=== PATIENT | male | born 1935 | race Caucasian/White ===

== ENCOUNTER 2017-01-24 21:19 | Emergency (ER) | payer MEDICARE, OTHER ==
[2017-01-24 21:31] VITALS: BP 162/75
[2017-01-24] MEDS ORDERED: Ondansetron 4 MG/2 ML SDV IVPUSH ONE (23:04)
[2017-01-24] MEDS ORDERED: HYDROmorphone 0.5 MG/0.5 ML Syringe IVPUSH ONE (23:06)
--- NOTE | 2017-01-24 23:11 | EDM.PDOC ---
ED HPI GENERAL MEDICAL PROBLEM - General Chief Complaint: Abdominal Pain Stated Complaint: SHARP PAIN ON LEFT SIDE Time Seen by Provider: 01/24/17 22:09 Source of Information: Reports: Patient, Family (, son), RN Notes Reviewed History Limitations: Reports: No Limitations - History of Present Illness INITIAL COMMENTS - FREE TEXT/NARRATIVE: The patient states he he developed sharp left lower quadrant abdominal pain lasting approximately 30 seconds or so around noon today. He had a second episode, also lasting about 30 seconds, around 14:00. He developed a third episode, associated with some left flank pain, around 16:00, however, this latest episode has been coming and going ever since. The patient has not identified any modifiers. No associated nausea, vomiting, diarrhea, urinary symptoms, or fever. No gross hematuria. No prior similar symptoms. The patient has not tried any home medications or remedies. The patient states that he was started on hydrochlorothiazide this past 12/22/2016. The patient's PCP is Dr. Baeza. His Cardiolgist is Dr. Angel. Treatments JAVA SECURITY ARCHITECT: Reports: Other (see below) Other Treatments JAVA SECURITY ARCHITECT: none Left Abdomen Pain Score (Numeric/FACES): 5 - Related Data Allergies Allergy/AdvReac Type Severity Reaction Status Date / Time Penicillins Allergy Unknown Cannot Verified 01/24/14 12:13 Remember Home Meds: Home Meds Aspirin/Calcium Carbonate/Mag [Aspirin Buffered 325 mg Tab] 81 mg PO DAILY 01/24 [History] Calcium Carb & Citrate/Vit D3 [Calcium + Vitamin D3 Caplet] 1 tab PO BID [History] Echinacea 250 mg PO ASDIRECTED PRN 01/24/14 [History] Glucosamine/[place]ro [place] A [Cosamin DS] 1,500 mg PO BID 01/24/14 [History] Insulin Aspart [NovoLOG] 10 unit INJECT MANOLO 01/24/14 [History] Insulin Aspart [NovoLOG] 12 units INJECT BEDTIME 01/24/14 [History] Insulin Aspart [NovoLOG] 118 units INJECT DAILY 01/24/14 [History] Loratadine [Allergy] 10 mg PO DAILY 01/24/14 [History] Travoprost [Travatan Z 0.004% Ophth Soln] 1 drop TOP BEDTIME 01/24/14 [History] Clopidogrel [Plavix] 75 mg PO DAILY 1 Days tablet 01/25/14 [Rx] Ascorbate Calcium [Vitamin C] 500 mg PO BID 01/24/17 [History] Ezetimibe [Zetia] 10 mg PO DAILY 01/24/17 [History] Fish Oil/[place]-3 Fatty Acids [Fish Oil 1,000 MG] 1 cap PO DAILY 01/24/17 [ History] Fluticasone Propionate 1 spray INH DAILY PRN 01/24/17 [History] Hydrochlorothiazide 25 mg PO DAILY 01/24/17 [History] Insulin Glargine,Hum.Rec.Anlog [[place] Solostar] 58 units INJECT BEDTIME [History] Isosorbide Mononitrate [Imdur] 30 mg PO DAILY 01/24/17 [History] Metoprolol Succinate 50 mg PO DAILY 01/24/17 [History] Naproxen Sodium [Aleve] 220 mg PO BID 01/24/17 [History] Polyethylene Glycol 3350 [Miralax] 17 gm PO DAILY 01/24/17 [History] Primidone 50 mg PO BID 01/24/17 [History] Ramipril [Altace] 5 mg PO DAILY 01/24/17 [History] Ubidecarenone [Coq-10] 200 mg PO DAILY 01/24/17 [History] Vitamin E 400 mg PO DAILY 01/24/17 [History] guaiFENesin [Diabetic Tussin Ex] 10 ml PO DAILY PRN 01/24/17 [History] Past Medical History Cardiovascular History: Reports: CAD, High Cholesterol, Hypertension, [place] (x 3) Respiratory History: Reports: Asthma Gastrointestinal History: Reports: GERD Endocrine/Metabolic History: Reports: Diabetes, Type II, Obesity/BMI 30+ Oncologic (Cancer) History: Reports: Prostate - Past Surgical History HEENT Surgical History: Reports: Adenoidectomy, Cataract Surgery, Tonsillectomy Cardiovascular Surgical History: Reports: Coronary Artery Bypass (x 4 vessel, 2004), Coronary Artery Stent (x3) Male Surgical History: Reports: Prostate Biopsy Oncologic Surgical History: Reports: Other (See Below) (Prostate seed implants) Social & Family History - Tobacco Use Smoking Status *Q: Never Smoker Tobacco Use Within Last Twelve Months: Cigars, Pipe - Caffeine Use Caffeine Use: Reports: Soda - Alcohol Use Alcohol Use History: Yes Alcohol Use Frequency: Socially - Recreational Drug Use Recreational Drug Use: No - Living Situation & Occupation Living situation: Reports: , with Spouse Occupation: Retired ED ROS GENERAL - Review of Systems Review Of Systems: See Below Constitutional: Reports: No Symptoms HEENT: Reports: No Symptoms Respiratory: Reports: No Symptoms Cardiovascular: Reports: No Symptoms Endocrine: Reports: No Symptoms GI/Abdominal: Reports: Constipation (chronic) : Reports: No Symptoms Musculoskeletal: Reports: No Symptoms Skin: Reports: No Symptoms Neurological: Reports: No Symptoms Psychiatric: Reports: No Symptoms Hematologic/Lymphatic: Reports: No Symptoms Immunologic: Reports: No Symptoms ED EXAM, GENERAL - Physical Exam Exam: See Below Exam Limited By: No Limitations General Appearance: Alert, WD/WN, No Apparent Distress Eye Exam: Bilateral Eye: Normal Inspection Ears: Normal External Exam, Hearing Grossly Normal Nose: Normal Inspection, No Blood Throat/Mouth: Normal Inspection, Normal Lips, Normal Voice, No Airway Compromise Head: Atraumatic, Normocephalic Neck: Normal Inspection, Full Range of Motion Respiratory/Chest: No Respiratory Distress, Lungs Clear, Normal Breath Sounds, No Accessory Muscle Use Cardiovascular: Normal Peripheral Pulses, Regular Rate, Rhythm, No Gallop, No JVD, No Murmur, No Rub Peripheral Pulses: 4+: Radial (L), Radial (R) GI/Abdominal: Normal Bowel Sounds, Soft, Non-Tender (including to the LLQ), No Organomegaly, No Distention, No Abnormal Bruit, No Mass (Male) Exam: Deferred Rectal (Males) Exam: Deferred Back Exam: Normal Inspection, Full Range of Motion. No: CVA Tenderness (L), CVA Tenderness (R) Extremities: Normal Inspection, Normal Range of Motion, No Pedal Edema, Normal Capillary Refill Neurological: Alert, Oriented, Normal Cognition, No Motor/Sensory Deficits Psychiatric: Normal Affect Skin Exam: Warm, Dry, Intact, Normal Color, No Rash Course - Vital Signs Last Recorded V/S: Last Vital Signs Temp 36.4 C 01/24/17 21:30 Pulse 73 01/24/17 21:30 Resp 20 01/24/17 21:30 BP 162/75 H 01/24/17 21:30 Pulse Ox 96 01/24/17 21:30 - Orders/Labs/Meds Orders: Active Orders 24 hr Category Date Time Status Abdomen Pelvis w Cont [CT] Stat Exams 01/24/17 23:04 Taken Sodium Chloride 0.9% [Normal Saline] 1,000 ml Med 01/24/17 23:15 Active IV ASDIRECTED Medication Orders Sodium Chloride (Normal Saline) 1,000 mls @ 150 mls/hr IV ASDIRECTED KAVITHA Labs: Laboratory Tests 01/24/17 01/24/17 01/24/17 Range/Units 22:32 23:10 23:10 WBC 6.99 (4.23-9.07) K/mm3 RBC 4.89 (4.63-6.08) M/mm3 Hgb 15.0 (13.7-17.5) gm/L Hct 45.0 (40.1-51.0) % MCV 92.0 (79.0-92.2) fl MCH 30.7 (25.7-32.2) pg MCHC 33.3 (32.2-35.5) g/dl RDW Std Deviation 42.5 (35.1-43.9) fL Plt Count 220 (163-337) K/mm3 MPV 9.5 (9.4-12.3) fl Neutrophils % (Manual) 55 (40-60) % Band Neutrophils % 0 (0-10) % Lymphocytes % (Manual) 42 H (20-40) % Atypical Lymphs % 0 % Monocytes % (Manual) 0 L (2-10) % Eosinophils % (Manual) 2 (0.8-7.0) % Basophils % (Manual) 1 (0.2-1.2) Platelet Estimate Adequate RBC Morph Comment Normal Sodium 140 (136-145) mEq/L Potassium 4.1 (3.5-5.1) mEq/L Chloride 102 (98-107) mEq/L Carbon Dioxide 27 (21-32) mEq/L Anion Gap 15.1 H (5-15) BUN 22 H (7-18) mg/dL Creatinine 1.1 (0.7-1.3) mg/dL Est Cr Clr Drug Dosing 51.82 mL/min Estimated GFR (MDRD) > 60 (>60) mL/min BUN/Creatinine Ratio 20.0 H (14-18) Glucose 265 H (83-115) mg/dL Calcium 9.1 (8.5-10.1) mg/dL Total Bilirubin 0.7 (0.2-1.0) mg/dL AST 18 (15-37) U/L ALT 31 (16-63) U/L Alkaline Phosphatase 76 (46-116) U/L Total Protein 7.2 (6.4-8.2) g/dl Albumin 4.0 (3.4-5.0) g/dl Globulin 3.2 gm/dL Albumin/Globulin Ratio 1.3 (1-2) Lipase 157 (73-393) U/L Urine Color Yellow (Yellow) Urine Appearance Clear (Clear) Urine pH 6.0 (5.0-8.0) Ur Specific [place] 1.025 (1.005-1.030) Urine Protein Negative (Negative) Urine Glucose (UA) 2+ H (Negative) Urine Ketones Negative (Negative) Urine Occult Blood Negative (Negative) Urine Nitrite Negative (Negative) Urine Bilirubin Negative (Negative) Urine Urobilinogen 0.2 (0.2-1.0) Ur Leukocyte Esterase Negative (Negative) Urine RBC Not seen (0-5) /hpf Urine WBC 0-5 (0-5) /hpf Ur Epithelial Cells Not seen (0-5) /hpf Urine Bacteria Few (FEW) /hpf Urine Mucus Not seen (FEW) /hpf Meds: Medications Generic Name Dose Route Start Last Admin Trade Name Freq PRN Reason Stop Dose Admin Sodium Chloride 1,000 mls @ 150 mls/hr 01/24/17 23:15 Normal Saline IV ASDIRECTED KAVITHA Discontinued Medications Generic Name Dose Route Start Last Admin Trade Name Freq PRN Reason Stop Dose Admin Diatrizoate Meglum/Diatrizoate Sod 90 ml 01/25/17 00:16 01/25/17 00:35 Gastrografin 37% PO 01/25/17 00:17 90 ml ONETIME ONE Administration Hydromorphone HCl 0.5 mg 01/24/17 23:06 Dilaudid IVPUSH 01/24/17 23:07 ONETIME ONE Iopamidol 125 ml 01/25/17 00:16 01/25/17 00:35 Isovue-300 (61%) IVPUSH 01/25/17 00:17 125 ml ONETIME ONE Administration Ondansetron HCl 4 mg 01/24/17 23:04 Zofran IVPUSH 01/24/17 23:05 ONETIME ONE - Re-Assessments/Exams Free Text/Narrative Re-Assessment/Exam: 01/24/17 23:09 Notified by the nurse that the patient would like something for pain, however, when I clarified this with the patient, he stated that he did not want anything for pain at this time. The patient's urinalysis is completely normal, without any blood whatsoever. This substantially reduces the likelihood that the cause of the patient's pain is due to ureterolithiasis. I have therefore ordered a CT scan of the abdomen and pelvis with oral and IV contrast. I have ordered IV fluid. 01/25/17 01:16 CT of the abdomen and pelvis with oral and IV contrast is read by virtual radiology as: There is circumferential mucosal thickening of the gastric antrum. This may be related to underdistention. Followup with additional imaging and GI consult at the discretion of arm site radiologist. Sludge noted in the gallbladder. Circumferential mucosal thickening of the bladder, correlate with symptoms of cystitis. 01/25/17 01:40 test results discussed with the patient, his , and son. With the exception of hyperglycemia, tonight's workup is grossly unremarkable, and does not swing the cause of the patient's pain. The patient states that he has had several bowel movements as a result of drinking the oral contrast, and that he has remained pain-free. Perhaps the cause of the patient's pain was constipation. Departure - Departure Time of Disposition: 01:41 Disposition: Home, Self-Care 01 Condition: Good Clinical Impression: Abdominal pain of unknown etiology, Hyperglycemia due to type 2 diabetes mellitus - Discharge Information Referrals: Gerry Baeza MD [Primary Care Provider] - Forms: ED Department Discharge Additional Instructions: You were seen in the emergency room for lower left abdominal pain and left flank pain. Workup in the ER included blood work, a urinalysis, and a CT scan of your abdomen and pelvis. With the exception of your blood glucose found elevated at 265, the remainder of your workup was unremarkable, and does not explain the cause of your pain. Since you have had several bowel movements since drinking the oral contrast, perhaps constipation was the cause of your pain. We recommend that you notify the office of Dr. Baeza of your ER visit. If any other problems, please do not hesitate to return to the ER. - My Orders Last 24 Hours: My Active Orders 01/24/17 23:04 Abdomen Pelvis w Cont [CT] Stat 01/24/17 23:15 Sodium Chloride 0.9% [Normal Saline] 1,000 ml IV ASDIRECTED - Assessment/Plan Last 24 Hours: My Active Orders 01/24/17 23:04 Abdomen Pelvis w Cont [CT] Stat 01/24/17 23:15 Sodium Chloride 0.9% [Normal Saline] 1,000 ml IV ASDIRECTED
[2017-01-24] MEDS ORDERED: Sodium Chloride 0.9% 1,000 ML IV SCH (23:15)
[2017-01-25] MEDS ORDERED: Iopamidol 612 MG/ML 150 ML Bottle IVPUSH ONE (00:16)
[2017-01-25] MEDS ORDERED: Diatrizoate Meglumine/Diatrizoate Sodium 37% 120 ML Bottle PO ONE (00:16)
--- NOTE | 2017-01-25 07:44 | CT ---
CT abdomen and pelvis Technique: Multiple axial sections were obtained from above the dome of the diaphragm inferiorly through the pubic symphysis. Intravenous and oral contrast has been given. Delayed images were also obtained through the bladder. Comparison: Previous abdominal CT exam of 09/05/11. Findings: Small portion of the visualized lung bases are clear. Liver shows fatty infiltration. No focal abnormality appreciated within the liver. Spleen appears within normal limits. Gallstones or hyperdense sludge seen within the gallbladder which is stable from prior CT exam. Adrenal glands show no nodule. Pancreas is within normal limits. Kidneys show symmetric contrast enhancement without hydronephrosis or mass. Aorta shows atherosclerotic change without aneurysmal dilatation. No retroperitoneal adenopathy is seen. Diverticuli seen within the sigmoid colon without diverticulitis. Radiation implant seeds are seen within the prostate gland. Bladder wall is mildly thickened most likely residual from the previous prostate radiation therapy. No free fluid or inflammatory change is seen. No bowel dilatation is seen. Appendix is seen which is normal. Delayed images show contrast within the distal ureters and within the bladder. Bone window settings were reviewed which show minimal degenerative change scattered throughout the spine. Equivocal wall thickening within the distal antrum of the stomach is noted. Impression: 1. Bladder wall thickening felt to be residual from previous prostate radiation therapy. 2. Fatty infiltration within the liver. 3. Equivocal antral wall thickening within the stomach. This may relate to normal peristalsis and please correlate if patient has any systemic symptoms to warrant further evaluation. 4. Other incidental findings. Diagnostic code #3 I agree with preliminary report issued by [employer] ([facility] report finalized on 01/25/17, 1:55 AM Central Time)
== END 2017-01-25 01:50 | disposition home or self-care (01) ==
LOC: JD.ED 21:19
DX: R10.32 Left lower quadrant pain (principal); E11.65 Type 2 diabetes mellitus with hyperglycemia; E78.00 Pure hypercholesterolemia, unspecified; I10 Essential (primary) hypertension; I25.2 Old myocardial infarction; J45.909 Unspecified asthma, uncomplicated; K21.9 Gastro-esophageal reflux disease without esophagitis; E66.9 Obesity, unspecified; Z88.0 Allergy status to penicillin; Z79.899 Other long term (current) drug therapy; Z79.4 Long term (current) use of insulin; Z68.31 Body mass index [BMI] 31.0-31.9, adult
CPT/HCPCS: 36415; 74177; 80053; 81001; 83690; 85025; 96360; 96361; 99284; J7040; Q9963; Q9967; 99283

== ENCOUNTER 2017-02-04 07:33 | Day surgery (SDC) | payer MEDICARE, OTHER ==
[~2017-02-04 07:33] MED LIST: Lactated Ringers 1,000 ML IV SCH; Lidocaine 1%/Sod Bicarbonate in NS 8.4% 1 ML Syringe PRN; Sodium Chloride 0.9% 10 ML Syringe FLUSH PRN
[2017-02-04] MEDS ORDERED: Propofol 200 MG/20 ML SDV ONE ×3 (07:35→09:41)
--- NOTE | 2017-02-04 08:18 | PCM.PREANE ---
Preanesthetic Assessment - Anesthesia/Transfusion/Family Hx Anesthesia History: Prior Anesthesia Without Reaction Family History of Anesthesia Reaction: No Family History of Anesthesia Reaction, Other: none Transfusion History: No Prior Transfusion(s) Intubation History: Unknown - Review of Systems General: No Symptoms Pulmonary: Shortness of Breath (pt states has asthma but does not use inhaler) Cardiovascular: No Symptoms Gastrointestinal: No Symptoms Neurological: No Symptoms Other: Reports: None - Physical Assessment NPO Status Date: 02/03/17 NPO Status Time: 21:30 Pulse: 66 O2 Sat by Pulse Oximetry: 95 Respiratory Rate: 16 Blood Pressure: 176/80 Temperature: 97.8 C ASA Class: 3 Mental Status: Alert & Oriented x3 Airway Class: Mallampati = 2 Dentition: Reports: Dentures (upper) Thyro-Mental Finger Breadths: 2 Mouth Opening Finger Breadths: 2 ROM/Head Extension: Full Lungs: Clear to Auscultation, Normal Respiratory Effort Cardiovascular: Regular Rate, Regular Rhythm - Allergies Allergies/Adverse Reactions: Allergies Allergy/AdvReac Type Severity Reaction Status Date / Time Penicillins Allergy Unknown Cannot Verified 02/01/17 14:01 Remember atorvastatin [From Lipitor] Allergy Cannot Verified 02/01/17 14:01 Remember codeine Allergy Cannot Verified 02/01/17 14:01 Remember morphine Allergy Cannot Verified 02/01/17 14:01 Remember pravastatin Allergy Cannot Verified 02/01/17 14:01 Remember rosuvastatin [From Crestor] Allergy Cannot Verified 02/01/17 14:01 Remember simvastatin [From Zocor] Allergy Cannot Verified 02/01/17 14:01 Remember - Anesthesia Plan Beta Audra: Metoprolol Med Last Dose Date: 02/04/17 Med Last Dose Time: 07:10 - Acknowledgements Anesthesia Type Planned: MAC Pt an Appropriate Candidate for the Planned Anesthesia: Yes Alternatives and Risks of Anesthesia Discussed w Pt/Guardian: Yes Pt/Guardian Understands and Agrees with Anesthesia Plan: Yes PreAnesthesia Questionnaire HEENT History: Reports: Allergic Rhinitis Cardiovascular History: Reports: CAD, High Cholesterol, Hypertension, ND (94,04, 14-angioplasty, and CABG), Other (See Below) Other Cardiovascular History: arteriossclerotic heart disease, heart catheterization, chest pain Respiratory History: Reports: Asthma (no inhalers, pt states SOB) Gastrointestinal History: Reports: Diverticulosis, GERD, Other (See Below) Other Gastrointestinal History: fatty liver, gallbladder sludge Genitourinary History: Reports: Prostate Disorder (Hx Prostate CA), Other (See Below) Other Genitourinary History: brachytherapy for prostate cancer IT ADMINISTRATIVE ASSISTANT History: Reports: None Musculoskeletal History: Reports: Arthritis, Back Pain, Chronic Other Neuro History: tremor Psychiatric History: Reports: None Endocrine/Metabolic History: Reports: Diabetes, Type II (BS 156 @0700), Obesity/ BMI 30+ Hematologic History: Reports: None Immunologic History: Reports: None Oncologic (Cancer) History: Reports: Prostate (seed implants) Dermatologic History: Reports: None - Past Surgical History Head Surgeries/Procedures: Reports: None HEENT Surgical History: Reports: Adenoidectomy, Cataract Surgery, Tonsillectomy Cardiovascular Surgical History: Reports: Coronary Artery Bypass, Coronary Artery Stent Respiratory Surgical History: Reports: None GI Surgical History: Reports: None Female Surgical History: Reports: None Male Surgical History: Reports: Prostate Biopsy Endocrine Surgical History: Reports: None Neurological Surgical History: Reports: None Musculoskeletal Surgical History: Reports: None Oncologic Surgical History: Reports: Other (See Below) (prostate seeds) Dermatological Surgical History: Reports: None - SUBSTANCE USE Smoking Status *Q: Never Smoker Tobacco Use Within Last Twelve Months: Cigars, Pipe Second Hand Smoke Exposure: No Days Per Week of Alcohol Use: 0 Recreational Drug Use History: No - HOME MEDS Home Medications: Home Meds Calcium Carb & Citrate/Vit D3 [Calcium + Vitamin D3 Caplet] 1 tab PO BID [History] Insulin Aspart [NovoLOG] 10 unit INJECT MANOLO 01/24/14 [History] Insulin Aspart [NovoLOG] 12 units INJECT BEDTIME 01/24/14 [History] Insulin Aspart [NovoLOG] 118 units INJECT DAILY 01/24/14 [History] Loratadine [Allergy] 10 mg PO DAILY 01/24/14 [History] Travoprost [Travatan Z 0.004% Ophth Soln] 1 drop TOP BEDTIME 01/24/14 [History] Clopidogrel [Plavix] 75 mg PO DAILY 1 Days tablet 01/25/14 [Rx] Ascorbate Calcium [Vitamin C] 500 mg PO BID 01/24/17 [History] Ezetimibe [Zetia] 10 mg PO DAILY 01/24/17 [History] Fluticasone Propionate 1 spray INH DAILY PRN 01/24/17 [History] Hydrochlorothiazide 25 mg PO DAILY 01/24/17 [History] Insulin Glargine,Hum.Rec.Anlog [[place]] 72 units INJECT BEDTIME [History] Metoprolol Succinate 50 mg PO DAILY 01/24/17 [History] Polyethylene Glycol 3350 [Miralax] 17 gm PO DAILY 01/24/17 [History] Primidone 50 mg PO BID 01/24/17 [History] Vitamin E 400 mg PO DAILY 01/24/17 [History] Aspirin 81 mg PO DAILY 02/01/17 [History] Colesevelam HCl [Welchol] 625 mg PO DAILY 02/01/17 [History] Echinacea Purpurea Extract [Echinacea] 125 mg PO DAILY 02/01/17 [History] Isosorbide Mononitrate [Imdur] 60 mg PO DAILY 02/01/17 [History] Multivitamin [Poly-Vitamin] 1 tab PO DAILY 02/01/17 [History] Nitroglycerin [Nitrostat] 0.4 mg PO Q5M PRN 02/01/17 [History] Ramipril 10 mg PO DAILY 02/01/17 [History] Tolterodine [Detrol] 2 mg PO DAILY 02/01/17 [History] - CURRENT (IN HOUSE) MEDS Current Meds: Current Medications Lactated Ringer's (Ringers, Lactated) 1,000 mls @ 125 mls/hr IV ASDIRECTED KAVITHA Stop: 02/04/17 23:00 Lidocaine/Sodium Bicarbonate (Buffered Lidocaine 1% In Ns 8.4%) 0.25 ml .XX ONETIME PRN PRN Reason: Prior to IV Start Stop: 02/04/17 18:00 Sodium Chloride (Saline Flush) 10 ml FLUSH ASDIRECTED PRN PRN Reason: Keep Vein Open Stop: 02/04/17 18:00 Discontinued Medications Propofol (Diprivan 20 Ml) Confirm Administered Dose 200 mg .ROUTE .STK-MED ONE Stop: 02/04/17 07:36
--- NOTE | 2017-02-04 08:20 | PCM.PREANE ---
Preanesthetic Assessment - Anesthesia/Transfusion/Family Hx Anesthesia History: Prior Anesthesia Without Reaction Family History of Anesthesia Reaction: No Family History of Anesthesia Reaction, Other: none Transfusion History: No Prior Transfusion(s) Intubation History: Unknown - Review of Systems Other: Reports: None - Physical Assessment NPO Status Date: 02/03/17 NPO Status Time: 21:30 Pulse: 66 O2 Sat by Pulse Oximetry: 95 Respiratory Rate: 16 Blood Pressure: 176/80 Temperature: 97.8 C Vital Signs: Last Vital Signs Temp 97.8 C H 02/04/17 08:18 Pulse 66 02/04/17 08:18 Resp 16 02/04/17 08:18 BP 176/80 H 02/04/17 08:18 Pulse Ox 95 02/04/17 08:18 ASA Class: 3 - Allergies Allergies/Adverse Reactions: Allergies Allergy/AdvReac Type Severity Reaction Status Date / Time Penicillins Allergy Unknown Cannot Verified 02/01/17 14:01 Remember atorvastatin [From Lipitor] Allergy Cannot Verified 02/01/17 14:01 Remember codeine Allergy Cannot Verified 02/01/17 14:01 Remember morphine Allergy Cannot Verified 02/01/17 14:01 Remember pravastatin Allergy Cannot Verified 02/01/17 14:01 Remember rosuvastatin [From Crestor] Allergy Cannot Verified 02/01/17 14:01 Remember simvastatin [From Zocor] Allergy Cannot Verified 02/01/17 14:01 Remember PreAnesthesia Questionnaire HEENT History: Reports: Allergic Rhinitis Cardiovascular History: Reports: CAD, High Cholesterol, Hypertension, IA (94,04, 14-angioplasty, and CABG), Other (See Below) Other Cardiovascular History: arteriossclerotic heart disease, heart catheterization, chest pain Respiratory History: Reports: Asthma (no inhalers, pt states SOB) Gastrointestinal History: Reports: Diverticulosis, GERD, Other (See Below) Other Gastrointestinal History: fatty liver, gallbladder sludge Genitourinary History: Reports: Prostate Disorder (Hx Prostate CA), Other (See Below) Other Genitourinary History: brachytherapy for prostate cancer SUPERVISOR TITLE History: Reports: None Musculoskeletal History: Reports: Arthritis, Back Pain, Chronic Other Neuro History: tremor Psychiatric History: Reports: None Endocrine/Metabolic History: Reports: Diabetes, Type II (BS 156 @0700), Obesity/ BMI 30+ Hematologic History: Reports: None Immunologic History: Reports: None Oncologic (Cancer) History: Reports: Prostate (seed implants) Dermatologic History: Reports: None - Past Surgical History Head Surgeries/Procedures: Reports: None HEENT Surgical History: Reports: Adenoidectomy, Cataract Surgery, Tonsillectomy Cardiovascular Surgical History: Reports: Coronary Artery Bypass, Coronary Artery Stent Respiratory Surgical History: Reports: None GI Surgical History: Reports: None Female Surgical History: Reports: None Male Surgical History: Reports: Prostate Biopsy Endocrine Surgical History: Reports: None Neurological Surgical History: Reports: None Musculoskeletal Surgical History: Reports: None Oncologic Surgical History: Reports: Other (See Below) (prostate seeds) Dermatological Surgical History: Reports: None - SUBSTANCE USE Smoking Status *Q: Never Smoker Tobacco Use Within Last Twelve Months: Cigars, Pipe Second Hand Smoke Exposure: No Days Per Week of Alcohol Use: 0 Recreational Drug Use History: No - HOME MEDS Home Medications: Home Meds Calcium Carb & Citrate/Vit D3 [Calcium + Vitamin D3 Caplet] 1 tab PO BID [History] Insulin Aspart [NovoLOG] 10 unit INJECT MANOLO 01/24/14 [History] Insulin Aspart [NovoLOG] 12 units INJECT BEDTIME 01/24/14 [History] Insulin Aspart [NovoLOG] 118 units INJECT DAILY 01/24/14 [History] Loratadine [Allergy] 10 mg PO DAILY 01/24/14 [History] Travoprost [Travatan Z 0.004% Ophth Soln] 1 drop TOP BEDTIME 01/24/14 [History] Clopidogrel [Plavix] 75 mg PO DAILY 1 Days tablet 01/25/14 [Rx] Ascorbate Calcium [Vitamin C] 500 mg PO BID 01/24/17 [History] Ezetimibe [Zetia] 10 mg PO DAILY 01/24/17 [History] Fluticasone Propionate 1 spray INH DAILY PRN 01/24/17 [History] Hydrochlorothiazide 25 mg PO DAILY 01/24/17 [History] Insulin Glargine,Hum.Rec.Anlog [Toujeo Solostar] 72 units INJECT BEDTIME [History] Metoprolol Succinate 50 mg PO DAILY 01/24/17 [History] Polyethylene Glycol 3350 [Miralax] 17 gm PO DAILY 01/24/17 [History] Primidone 50 mg PO BID 01/24/17 [History] Vitamin E 400 mg PO DAILY 01/24/17 [History] Aspirin 81 mg PO DAILY 02/01/17 [History] Colesevelam HCl [Welchol] 625 mg PO DAILY 02/01/17 [History] Echinacea Purpurea Extract [Echinacea] 125 mg PO DAILY 02/01/17 [History] Isosorbide Mononitrate [Imdur] 60 mg PO DAILY 02/01/17 [History] Multivitamin [Poly-Vitamin] 1 tab PO DAILY 02/01/17 [History] Nitroglycerin [Nitrostat] 0.4 mg PO Q5M PRN 02/01/17 [History] Ramipril 10 mg PO DAILY 02/01/17 [History] Tolterodine [Detrol] 2 mg PO DAILY 02/01/17 [History] - CURRENT (IN HOUSE) MEDS Current Meds: Current Medications Lactated Ringer's (Ringers, Lactated) 1,000 mls @ 125 mls/hr IV ASDIRECTED KAVITHA Stop: 02/04/17 23:00 Last Admin: 02/04/17 08:05 Dose: 125 mls/hr Lidocaine/Sodium Bicarbonate (Buffered Lidocaine 1% In Ns 8.4%) 0.25 ml .XX ONETIME PRN PRN Reason: Prior to IV Start Stop: 02/04/17 18:00 Last Admin: 02/04/17 08:04 Dose: 0.25 ml Sodium Chloride (Saline Flush) 10 ml FLUSH ASDIRECTED PRN PRN Reason: Keep Vein Open Stop: 02/04/17 18:00 Discontinued Medications Propofol (Diprivan 20 Ml) Confirm Administered Dose 200 mg .ROUTE .STK-MED ONE Stop: 02/04/17 07:36
--- NOTE | 2017-02-04 09:36 | PCM.OPNOTE ---
- General Post-Op/Procedure Note Date of Surgery/Procedure: 02/04/17 Operative Procedure(s): egd with bx/colonoscopy to transverese colon Pre Op Diagnosis: change in bowel habits and abnormal CTscan showing thickening of the stomach Post-Op Diagnosis: barretts esophagus with hiatal henia and normal colon up to transverse colon Anesthesia Technique: MAC Primary Surgeon: Gabe Burroughs EBL in mLs: 0 Complications: None Condition: Good
--- NOTE | 2017-02-04 09:39 | PCM48HPAN ---
Post Anesthesia Note - EVALUATION WITHIN 48HRS OF ANESTHETIC Vital Signs in Normal Range: Yes Patient Participated in Evaluation: Yes Respiratory Function Stable: Yes Airway Patent: Yes Cardiovascular Function Stable: Yes Hydration Status Stable: Yes Pain Control Satisfactory: Yes Nausea and Vomiting Control Satisfactory: Yes Mental Status Recovered: Yes
--- NOTE | 2017-02-04 11:20 | OR ---
DATE OF OPERATION: 02/04/2017 SURGEON: Gabe Burroughs MD PREOPERATIVE DIAGNOSIS: Abnormal CT scan of the stomach. POSTOPERATIVE DIAGNOSIS: Abnormal CT scan of the stomach. OPERATION PERFORMED: EGD with biopsy. FINDINGS: A fixed hiatal hernia. GE junction located at 35 cm with about 4 cm area of Yu's esophagus. Second portion of the duodenum and duodenal bulb were unremarkable. The antrum showed some flattening of mucosa, and this was biopsied. Body, cardia, and fundus of the stomach were unremarkable. Balance of the esophagus did not show anything. ANESTHESIA: Done under IV sedation. DESCRIPTION OF PROCEDURE: The patient was taken to the operating room, placed in a supine position, connected to monitoring equipment, given IV sedation, and placed in left lateral position. Bite block was inserted. Video Olympus gastroscope was placed in the posterior oropharynx, under direct vision, threaded past the cricopharyngeus, down the esophagus and into the stomach. The stomach was insufflated, and the scope was passed through the pylorus to the second portion of the duodenum. It was slowly withdrawn showing normal second portion of the duodenum, duodenal bulb, and pyloric channel. Antrum was viewed and showed some flattening of the mucosa with some petechiae and biopsies were taken. Body, cardia, and fundus of the stomach were viewed. The J-maneuver was performed. Hiatus showed a hiatal hernia. The scope was withdrawn to the hiatal hernia showing it to be somewhat fixed. The GE junction was located at 35 cm with an area of Yu's esophagus for about 4 cm. This was biopsied about 4 x 4 quadrants. Rest of the esophagus viewed as the scope withdrawn was unremarkable. The patient tolerated the procedure. Specimen was sent to pathology in a labeled container. IV sedation will be continued for colonoscopy. ESTIMATED BLOOD LOSS: MMODAL /[id number]
[2017-02-04 12:28] VITALS: BP 175/83
--- NOTE | 2017-02-05 07:51 | OR ---
DATE OF OPERATION: 02/04/2017 SURGEON: Gabe Burroughs MD PREOPERATIVE DIAGNOSIS: Change in bowel habits. POSTOPERATIVE DIAGNOSIS: Change in bowel habits. OPERATION PERFORMED: Colonoscopy to the transverse colon. FINDINGS: Normal study. ANESTHESIA: Procedure done under IV sedation. DESCRIPTION OF PROCEDURE: The patient was taken to the endoscopy room, placed in a supine position, connected to monitoring equipment, given IV sedation, and upper GI endoscopy was done. IV sedation continued for colonoscopy. He was placed in the left lateral position. Perianal area was inspected and was normal. Rectal exam showed good sphincter tone. A video Olympus colonoscope was then introduced into the rectum and threaded up without problem to the transverse colon. Loop developed, but could not be controlled enough to advance the scope beyond the transverse colon. Prep was excellent. [place] cleansing score grade A. The scope was slowly withdrawn showing the transverse colon, descending colon, sigmoid colon, and rectum. The patient tolerated the procedure and was sent to recovery room in a stable condition. He will be followed up by Dr. Baeza. ESTIMATED BLOOD LOSS: MMODAL /[id number]
== END 2017-02-04 10:28 | disposition home or self-care (01) ==
LOC: JD.SDS 07:33
PROVIDERS: ATTEND Surgery
DX: K44.9 Diaphragmatic hernia without obstruction or gangrene (principal); K22.70 Barrett's esophagus without dysplasia; Z88.0 Allergy status to penicillin; Z88.8 Allergy status to other drugs, medicaments and biological substances; I25.10 Atherosclerotic heart disease of native coronary artery without angina pectoris; J45.909 Unspecified asthma, uncomplicated; Z95.1 Presence of aortocoronary bypass graft; E11.9 Type 2 diabetes mellitus without complications; E78.5 Hyperlipidemia, unspecified; I10 Essential (primary) hypertension; Z98.890 Other specified postprocedural states; Z79.4 Long term (current) use of insulin; Z79.899 Other long term (current) drug therapy; Z87.891 Personal history of nicotine dependence
CPT/HCPCS: 43239; 45378; 88305; J7120; 00810; J2704

== ENCOUNTER 2023-01-29 15:43 | Inpatient (IN) | payer MEDICARE, OTHER ==
[2023-01-29 17:15] LABS: BASOPHILS PERCENT AUTO 0.2 % (0.0-1.0); EOSINOPHILS ABSOLUTE AUTO 0.1 K/mm3 (0.0-0.4); EOSINOPHILS PERCENT AUTO 1.5 % (0.0-6.0); HEMATOCRIT 41.9 % (42.0-52.0); HEMOGLOBIN 14.2 gm/dl (14.0-18.0); IMMATURE GRAN ABSOLUTE AUTO 0.04 K/mm3 (0.00-0.05); IMMATURE GRAN PERCENT AUTO 0.6 % (0.0-0.4); LYMPHOCYTES ABSOLUTE AUTO 1.3 K/mm3 (1.0-4.8); LYMPHOCYTES PERCENT AUTO 20.3 % (24.0-44.0); MEAN CORPUSCULAR HEMOGLOBIN 32.6 pg (28.0-32.0); MEAN CORPUSCULAR HGB CONC 33.9 g/dl (32.0-36.0); MEAN CORPUSCULAR VOLUME 96.1 fl (83.0-99.0); MEAN PLATELET VOLUME 9.5 fl (9.4-12.4); MONOCYTES ABSOLUTE AUTO 0.6 K/mm3 (0.0-0.8); MONOCYTES PERCENT AUTO 10.4 % (0.0-8.0); NEUTROPHILS ABSOLUTE AUTO 4.1 K/mm3 (1.8-7.7); PLATELET COUNT,PLT 214 K/mm3 (150-400); RED BLOOD CELL COUNT 4.36 M/mm3 (4.52-5.90); WHITE BLOOD CELL COUNT,WBC 6.17 K/mm3 (3.9-11.3)
[2023-01-29 17:47] LABS: ALBUMIN 3.2 g/dl (3.4-5.0); ANION GAP 12.2 (5-15); BILIRUBIN TOTAL 1.5 mg/dL (0.2-1.0); BUN/CREATININE RATIO 50.9 (14-18); C-REACTIVE PROTEIN 2.7 mg/dL (<1.0); CALCIUM 8.7 mg/dL (8.5-10.1); CREATININE 1.1 mg/dL (0.7-1.3); EST CRCL DRUG DOSING (CG) 41.75 mL/min; POTASSIUM,K 4.2 mEq/L (3.5-5.1); PROTEIN TOTAL,TP 6.5 g/dl (6.4-8.2)
[2023-01-29] MEDS ORDERED: Sodium Chloride 0.9% 500 ML IV ONE (17:47)
[2023-01-29] MEDS ORDERED: REMDESIVIR 200 MG in Sodium Chloride 0.9% 250 ML IV ONE (17:52)
[2023-01-29] MEDS ORDERED: REMDESIVIR 100 MG ONE (18:18)
[2023-01-29 19:22] LABS: APPEARANCE,URINE CLEAR (Clear); BILIRUBIN,URINE NEGATIVE (Negative); COLOR,URINE YELLOW (Yellow); GLUCOSE,URINE NEGATIVE (Negative); KETONES,URINE TRACE (Negative); LEUKOCYTE ESTERASE,URINE NEGATIVE (Negative); NITRITE,URINE NEGATIVE (Negative); OCCULT BLOOD,URINE NEGATIVE (Negative); PROTEIN,URINE NEGATIVE (Negative); UROBILINOGEN,URINE 0.2 (0.2-1.0)
[2023-01-29 19:50] LABS: BACTERIA,URINE FEW /hpf (FEW); MUCUS,URINE FEW /hpf (FEW); RBC,URINE 0-5 /hpf (0-5); SQUAMOUS EPITHELIAL CELLS,UR 0-5 /hpf (0-5); WBC,URINE 0-5 /hpf (0-5)
[2023-01-29] MEDS ORDERED: Isosorbide Mononitrate 30 MG Tab.ER PO SCH (21:00)
[2023-01-29] MEDS ORDERED: Topiramate 25 MG Tab PO SCH (21:00)
[2023-01-29] MEDS ORDERED: traMADol 50 MG Tab PO PRN (22:27)
[2023-01-29] MEDS: Sodium Chloride 0.9% 1,000 ML IV SCH (22:41)
[2023-01-30] MEDS: Sodium Chloride 0.9% 1,000 ML IV SCH (04:11)
[2023-01-30 05:42] LABS: BASOPHILS PERCENT AUTO 0.3 % (0.0-1.0); EOSINOPHILS ABSOLUTE AUTO 0.2 K/mm3 (0.0-0.4); EOSINOPHILS PERCENT AUTO 3.6 % (0.0-6.0); HEMOGLOBIN 12.7 gm/dl (14.0-18.0); IMMATURE GRAN ABSOLUTE AUTO 0.04 K/mm3 (0.00-0.05); IMMATURE GRAN PERCENT AUTO 0.7 % (0.0-0.4); LYMPHOCYTES ABSOLUTE AUTO 1.8 K/mm3 (1.0-4.8); LYMPHOCYTES PERCENT AUTO 30.3 % (24.0-44.0); MEAN CORPUSCULAR HEMOGLOBIN 32.4 pg (28.0-32.0); MEAN CORPUSCULAR HGB CONC 33.4 g/dl (32.0-36.0); MEAN CORPUSCULAR VOLUME 96.9 fl (83.0-99.0); MEAN PLATELET VOLUME 9.5 fl (9.4-12.4); MONOCYTES ABSOLUTE AUTO 0.7 K/mm3 (0.0-0.8); MONOCYTES PERCENT AUTO 11.2 % (0.0-8.0); NEUTROPHILS ABSOLUTE AUTO 3.1 K/mm3 (1.8-7.7); NEUTROPHILS PERCENT AUTO 53.9 % (41.0-71.0); PLATELET COUNT,PLT 172 K/mm3 (150-400); RED BLOOD CELL COUNT 3.92 M/mm3 (4.52-5.90); WHITE BLOOD CELL COUNT,WBC 5.78 K/mm3 (3.9-11.3)
[2023-01-30 06:03] LABS: ANION GAP 13.1 (5-15); BUN/CREATININE RATIO 48.9 (14-18); CALCIUM 7.7 mg/dL (8.5-10.1); CREATININE 0.9 mg/dL (0.7-1.3); EST CRCL DRUG DOSING (CG) 50.2 mL/min; POTASSIUM,K 3.1 mEq/L (3.5-5.1)
[2023-01-30] MEDS ORDERED: Docusate Sodium 100 MG Cap PO PRN (07:42)
[2023-01-30] MEDS ORDERED: Ondansetron 4 MG/2 ML SDV IV PRN (07:42)
[2023-01-30] MEDS ORDERED: Acetaminophen 325 MG Tab PO PRN (07:42)
[2023-01-30] MEDS ORDERED: Albuterol 0.083% 2.5 MG/3 ML Neb Soln NEB PRN (07:42)
[2023-01-30] MEDS ORDERED: Albuterol/Ipratropium 3.0-0.5 MG/3 ML Neb Soln NEB PRN (07:42)
[2023-01-30] MEDS ORDERED: D5 1/2 NS w/ 20 mEq/L KCl 1,000 ML IV SCH (07:45)
[2023-01-30] MEDS ORDERED: Non-Formulary Medication 1 Each (Olopatadine 2.5 ML Bottle) EYEBOTH SCH (09:00)
[2023-01-30] MEDS ORDERED: Polyethylene Glycol 3350 Powder 17 GM Packet PO PRN (09:00)
[2023-01-30] MEDS ORDERED: Potassium Chloride 20 MEQ Tab.ER PO ONE (09:00)
[2023-01-30] MEDS ORDERED: traMADol 50 MG Tab PO PRN (09:00)
[2023-01-30] MEDS: traMADol 50 MG Tab PO SCH ×3 (09:24→20:24)
[2023-01-30] MEDS: Topiramate 25 MG Tab PO SCH ×3 (09:24→20:20)
[2023-01-30] MEDS: Metoprolol Succinate 25 MG Tab.ER PO SCH (09:25)
[2023-01-30] MEDS: Lisinopril 20 MG Tab PO SCH (09:25)
[2023-01-30] MEDS: Oxybutynin 5 MG Tab PO SCH (09:25)
[2023-01-30] MEDS: Pantoprazole 40 MG Tab.CR PO SCH (09:25)
[2023-01-30] MEDS: Calcium Carbonate 500 MG Tab.Chew PO SCH ×3 (09:26→20:20)
[2023-01-30] MEDS: Aspirin 81 MG Tab.EC PO SCH (09:26)
[2023-01-30] MEDS: Isosorbide Mononitrate 30 MG Tab.ER PO SCH (09:39)
[2023-01-30] MEDS: Enoxaparin 40 MG/0.4 ML Syringe SUBCUT SCH (09:46)
[2023-01-30] MEDS: Carboxymethylcellulose Sodium 1% Ophth Gel 15 ML Bottle EYEBOTH SCH (09:46)
[2023-01-30] MEDS: ENZALUTAMIDE 40 MG PO SCH (11:45)
[2023-01-30] MEDS ORDERED: traMADol 50 MG Tab PO SCH (18:00)
[2023-01-30] MEDS: REMDESIVIR 100 MG in Sodium Chloride 0.9% 250 ML IV SCH (18:27)
[2023-01-30] MEDS: Latanoprost 0.005% Ophth Soln 2.5 ML Bottle EYEBOTH SCH ×2 (19:53→20:52)
[2023-01-31 05:59] LABS: HEMATOCRIT 38.1 % (42.0-52.0); HEMOGLOBIN 12.8 gm/dl (14.0-18.0); MEAN CORPUSCULAR HEMOGLOBIN 32.1 pg (28.0-32.0); MEAN CORPUSCULAR HGB CONC 33.6 g/dl (32.0-36.0); MEAN CORPUSCULAR VOLUME 95.5 fl (83.0-99.0); MEAN PLATELET VOLUME 9.3 fl (9.4-12.4); PLATELET COUNT,PLT 166 K/mm3 (150-400); RED BLOOD CELL COUNT 3.99 M/mm3 (4.52-5.90); WHITE BLOOD CELL COUNT,WBC 4.99 K/mm3 (3.9-11.3)
[2023-01-31 06:19] LABS: ALBUMIN 2.6 g/dl (3.4-5.0); ANION GAP 10.3 (5-15); BILIRUBIN TOTAL 0.5 mg/dL (0.2-1.0); BUN/CREATININE RATIO 42.5 (14-18); C-REACTIVE PROTEIN 2.3 mg/dL (<1.0); CALCIUM 7.6 mg/dL (8.5-10.1); CREATININE 0.8 mg/dL (0.7-1.3); EST CRCL DRUG DOSING (CG) 56.56 mL/min; MAGNESIUM 2.1 mg/dL (1.8-2.4); POTASSIUM,K 4.3 mEq/L (3.5-5.1); PROTEIN TOTAL,TP 5.2 g/dl (6.4-8.2)
[2023-01-31] MEDS: Calcium Carbonate 500 MG Tab.Chew PO SCH ×2 (08:57→20:21)
[2023-01-31] MEDS: Enoxaparin 40 MG/0.4 ML Syringe SUBCUT SCH (08:58)
[2023-01-31] MEDS: Lisinopril 20 MG Tab PO SCH (08:59)
[2023-01-31] MEDS: traMADol 50 MG Tab PO SCH ×2 (09:00→20:19)
[2023-01-31] MEDS: Aspirin 81 MG Tab.EC PO SCH (09:00)
[2023-01-31] MEDS: Topiramate 25 MG Tab PO SCH ×2 (09:00→20:19)
[2023-01-31] MEDS: Pantoprazole 40 MG Tab.CR PO SCH (09:02)
[2023-01-31] MEDS: Metoprolol Succinate 25 MG Tab.ER PO SCH (09:02)
[2023-01-31] MEDS: Isosorbide Mononitrate 30 MG Tab.ER PO SCH (09:02)
[2023-01-31] MEDS: Carboxymethylcellulose Sodium 1% Ophth Gel 15 ML Bottle EYEBOTH SCH (09:04)
[2023-01-31] MEDS: Oxybutynin 5 MG Tab PO SCH (09:04)
[2023-01-31] MEDS: ENZALUTAMIDE 40 MG PO SCH (11:45)
[2023-01-31] MEDS ORDERED: Sodium Chloride 0.9% 250 ML ONE (18:14)
[2023-01-31] MEDS: REMDESIVIR 100 MG in Sodium Chloride 0.9% 250 ML IV SCH (18:27)
[2023-01-31] MEDS: Latanoprost 0.005% Ophth Soln 2.5 ML Bottle EYEBOTH SCH (20:18)
[2023-02-01 06:40] LABS: HEMATOCRIT 38.1 % (42.0-52.0); HEMOGLOBIN 12.7 gm/dl (14.0-18.0); MEAN CORPUSCULAR HEMOGLOBIN 31.7 pg (28.0-32.0); MEAN CORPUSCULAR HGB CONC 33.3 g/dl (32.0-36.0); MEAN PLATELET VOLUME 10.4 fl (9.4-12.4); PLATELET COUNT,PLT 223 K/mm3 (150-400); RED BLOOD CELL COUNT 4.01 M/mm3 (4.52-5.90); WHITE BLOOD CELL COUNT,WBC 5.85 K/mm3 (3.9-11.3)
[2023-02-01 06:48] LABS: ALBUMIN 2.6 g/dl (3.4-5.0); ANION GAP 11.3 (5-15); BILIRUBIN TOTAL 0.4 mg/dL (0.2-1.0); BUN/CREATININE RATIO 37.1 (14-18); C-REACTIVE PROTEIN 2.1 mg/dL (<1.0); CALCIUM 7.7 mg/dL (8.5-10.1); CREATININE 0.7 mg/dL (0.7-1.3); EST CRCL DRUG DOSING (CG) 64.64 mL/min; MAGNESIUM 1.9 mg/dL (1.8-2.4); POTASSIUM,K 4.3 mEq/L (3.5-5.1); PROTEIN TOTAL,TP 5.3 g/dl (6.4-8.2)
[2023-02-01] MEDS: Enoxaparin 40 MG/0.4 ML Syringe SUBCUT SCH (09:08)
[2023-02-01] MEDS: Lisinopril 20 MG Tab PO SCH (09:09)
[2023-02-01] MEDS: Topiramate 25 MG Tab PO SCH (09:13)
[2023-02-01] MEDS: Metoprolol Succinate 25 MG Tab.ER PO SCH (09:13)
[2023-02-01] MEDS: Aspirin 81 MG Tab.EC PO SCH (09:14)
[2023-02-01] MEDS: traMADol 50 MG Tab PO SCH (09:14)
[2023-02-01] MEDS: Oxybutynin 5 MG Tab PO SCH (09:14)
[2023-02-01] MEDS: Isosorbide Mononitrate 30 MG Tab.ER PO SCH (09:14)
[2023-02-01] MEDS: Carboxymethylcellulose Sodium 1% Ophth Gel 15 ML Bottle EYEBOTH SCH (09:15)
[2023-02-01] MEDS: Pantoprazole 40 MG Tab.CR PO SCH (09:15)
[2023-02-01] MEDS: Calcium Carbonate 500 MG Tab.Chew PO SCH (09:15)
[2023-02-01 09:20] VITALS: BP 115/64; PULSE 61
[2023-02-01] MEDS: ENZALUTAMIDE 40 MG PO SCH (11:07)
== END 2023-02-01 13:00 | disposition other institution (70) | DRG 178 ==
LOC: JD.ED 15:43 → JD.MS 20:03
PROVIDERS: ADMIT Internal Medicine; ATTEND Internal Medicine
PROC: XW033E5 Introduction of Remdesivir Anti-infective into Peripheral Vein, Percutaneous Approach, New Technology Group 5 (ICD-10-PCS; principal; 2023-01-29)
DX: U07.1 COVID-19 (principal); I25.810 Atherosclerosis of coronary artery bypass graft(s) without angina pectoris; J45.909 Unspecified asthma, uncomplicated; E86.0 Dehydration; Z66 Do not resuscitate; E11.9 Type 2 diabetes mellitus without complications; I10 Essential (primary) hypertension; M19.90 Unspecified osteoarthritis, unspecified site; E16.2 Hypoglycemia, unspecified; Z96.41 Presence of insulin pump (external) (internal); E11.69 Type 2 diabetes mellitus with other specified complication; N42.9 Disorder of prostate, unspecified; M54.9 Dorsalgia, unspecified; G89.29 Other chronic pain; I25.10 Atherosclerotic heart disease of native coronary artery without angina pectoris; Z88.0 Allergy status to penicillin; Z88.5 Allergy status to narcotic agent; E78.00 Pure hypercholesterolemia, unspecified; K21.9 Gastro-esophageal reflux disease without esophagitis; E66.9 Obesity, unspecified; I25.2 Old myocardial infarction; Z85.46 Personal history of malignant neoplasm of prostate; Z90.49 Acquired absence of other specified parts of digestive tract; Z98.49 Cataract extraction status, unspecified eye; Z90.89 Acquired absence of other organs; Z79.4 Long term (current) use of insulin; Z79.82 Long term (current) use of aspirin; Z79.899 Other long term (current) drug therapy; Z95.1 Presence of aortocoronary bypass graft; Z95.5 Presence of coronary angioplasty implant and graft
CPT/HCPCS: 36415; 71045; 80053; 81001; 85025; 86140; 96361; 96365; 99285; J0248; J7030; J7050; 80048; 82947; 83735; 85027; 87641; 94667; 94668; 94760; 97116-GP; 97162-GP; A9270-GY; J1650

== ENCOUNTER 2024-05-14 11:55 | Emergency (ER) | payer MEDICARE, OTHER ==
[2024-05-14 13:19] LABS: BASOPHILS PERCENT AUTO 0.5 % (0.0-1.0); EOSINOPHILS ABSOLUTE AUTO 0.4 K/mm3 (0.0-0.4); HEMATOCRIT 39.6 % (42.0-52.0); IMMATURE GRAN ABSOLUTE AUTO 0.05 K/mm3 (0.00-0.05); IMMATURE GRAN PERCENT AUTO 0.8 % (0.0-0.4); LYMPHOCYTES ABSOLUTE AUTO 1.2 K/mm3 (1.0-4.8); LYMPHOCYTES PERCENT AUTO 17.7 % (24.0-44.0); MEAN CORPUSCULAR HEMOGLOBIN 31.6 pg (28.0-32.0); MEAN CORPUSCULAR HGB CONC 32.8 g/dl (32.0-36.0); MEAN CORPUSCULAR VOLUME 96.1 fl (83.0-99.0); MEAN PLATELET VOLUME 9.3 fl (9.4-12.4); MONOCYTES ABSOLUTE AUTO 0.5 K/mm3 (0.0-0.8); MONOCYTES PERCENT AUTO 7.4 % (0.0-8.0); NEUTROPHILS ABSOLUTE AUTO 4.4 K/mm3 (1.8-7.7); NEUTROPHILS PERCENT AUTO 67.6 % (41.0-71.0); PLATELET COUNT,PLT 182 K/mm3 (150-400); RED BLOOD CELL COUNT 4.12 M/mm3 (4.52-5.90); WHITE BLOOD CELL COUNT,WBC 6.51 K/mm3 (3.9-11.3)
[2024-05-14 13:55] LABS: A/G RATIO 1.1 (1-2); ALANINE AMINOTRANSFERASE,ALT 17 U/L (16-63); ALBUMIN 3.3 g/dl (3.4-5.0); ALKALINE PHOSPHATASE 88 U/L (46-116); ANION GAP 13.2 (5-15); ASPARTATE AMNIOTRANSFERASE,AST 16 U/L (15-37); BILIRUBIN TOTAL 0.7 mg/dL (0.2-1.0); BLOOD UREA NITROGEN,BUN 28 mg/dL (7-18); BUN/CREATININE RATIO 31.1 (14-18); CALCIUM 8.5 mg/dL (8.5-10.1); CARBON DIOXIDE,CO2 26 mEq/L (21-32); CHLORIDE,CL 103 mEq/L (98-107); CREATININE 0.9 mg/dL (0.7-1.3); ESTIMATED GFR 83 mL/min (>60); GLUCOSE RANDOM 169 mg/dL (70-99); POTASSIUM,K 4.2 mEq/L (3.5-5.1); PROTEIN TOTAL,TP 6.2 g/dl (6.4-8.2); SODIUM,NA 138 mEq/L (136-145)
[2024-05-14 14:25] VITALS: BP 118/71; PULSE 78
== END 2024-05-14 14:10 | disposition home or self-care (01) ==
LOC: JD.ED 11:55
DX: S01.01XA Laceration without foreign body of scalp, initial encounter (principal); S61.412A Laceration without foreign body of left hand, initial encounter; S40.212A Abrasion of left shoulder, initial encounter; I10 Essential (primary) hypertension; I25.10 Atherosclerotic heart disease of native coronary artery without angina pectoris; I25.2 Old myocardial infarction; K21.9 Gastro-esophageal reflux disease without esophagitis; E11.9 Type 2 diabetes mellitus without complications; E66.9 Obesity, unspecified; Z95.5 Presence of coronary angioplasty implant and graft; Z95.1 Presence of aortocoronary bypass graft; Z79.82 Long term (current) use of aspirin; Z79.899 Other long term (current) drug therapy; Z79.4 Long term (current) use of insulin; Z88.8 Allergy status to other drugs, medicaments and biological substances; Z88.5 Allergy status to narcotic agent; Z88.6 Allergy status to analgesic agent; Z88.0 Allergy status to penicillin; Z88.1 Allergy status to other antibiotic agents; W19.XXXA Unspecified fall, initial encounter; Y92.002 Bathroom of unspecified non-institutional (private) residence as the place of occurrence of the external cause
CPT/HCPCS: 36415; 70450; 70450-26; 80053; 85025; 93005; 99284